=== PATIENT | female | born 1965 | race Hispanic/Latino ===

== ENCOUNTER 2021-07-27 08:33 | Emergency (ER) | payer SELFPAY ==
[~2021-07-27] VITALS: Ht 152.4 cm; Wt 100.7 kg
[~2021-07-27 08:33] MED LIST: AMOX-426 PO; METF-446 PO
[2021-07-27 09:15] LABS: BASOPHILS % (AUTO) 0.5 % (0.0-5.0); EOSINOPHILS % (AUTO) 1.6 % (0.0-8.0); HEMATOCRIT 40.3 % (36-48); LYMPHOCYTES % (AUTO) 27.6 % (21.0-51.0); MEAN CORPUSCULAR HEMOGLOBIN 30.2 pg (27.0-33.0); MEAN CORPUSCULAR HGB CONC 33.3 g/dL (32.0-36.0); MEAN CORPUSCULAR VOLUME 90.8 fL (79-99); MONOCYTES % (AUTO) 10.7 % (3.0-13.0); NEUTROPHILS % (AUTO) 59.2 % (40.0-77.0); PLATELET COUNT (AUTO) 277 K/uL (130-400); RED BLOOD CELL COUNT(AUTO) 4.44 MIL/uL (4.00-5.50); WHITE BLOOD COUNT (AUTO) 10.1 K/uL (4.8-10.8)
[2021-07-27 09:23] LABS: CREATININE 0.6 mg/dL (0.5-1.5); POTASSIUM 3.7 mmol/L (3.5-5.1)
[2021-07-27 09:28] LABS: ALBUMIN 3.3 g/dL (3.5-5.0); BILIRUBIN,TOTAL 0.4 mg/dL (0.2-1.0); TOTAL PROTEIN, SERUM 7.6 g/dL (6.0-8.3)
[2021-07-27] MEDS ORDERED: KETOROLAC 30MG VIAL (30MG/ML) ONE (10:13)
[2021-07-27 10:18] LABS: APPEARANCE,URINE Turbid (CLEAR); BILIRUBIN,URINE Negative (NEGATIVE); COLOR,URINE Yellow (YELLOW); GLUCOSE, URINE (UA) Negative (NEGATIVE); KETONES,URINE Negative (NEGATIVE); LEUKOCYTE ESTERASE ,URINE Moderate (NEGATIVE); NITRATE,URINE Negative (NEGATIVE); OCCULT BLOOD,URINE Negative (NEGATIVE); PROTEIN,URINE Negative (NEGATIVE); UROBILINOGEN,URINE 0.2 mg/dL (0.2-1.0)
[2021-07-27 10:29] LABS: BACTERIA,URINE Many /HPF (None Seen); SQUAMOUS EPITHELIAL CELL,UR 30-50 /HPF (0-2)
[2021-07-27 10:30] LABS: RBC,URINE 0-1 /HPF (0-1)
[2021-07-27] MEDS ORDERED: 0.9%NACL 1000ML 1,000 ML IV ONE (10:30)
[2021-07-27] MEDS ORDERED: KETOROLAC 15MG/ML VIAL (15MG/ML) IV ONE (10:30)
[2021-07-27] MEDS ORDERED: DIPH1TAB PO (12:14)
[2021-07-27] MEDS ORDERED: HYOS0.124 SL (12:14)
[2021-07-27 13:05] VITALS: BP 156/91
== END 2021-07-27 13:05 | disposition home or self-care (01) ==
LOC: EDH 08:33
DX: A08.4 Viral intestinal infection, unspecified (principal); E11.9 Type 2 diabetes mellitus without complications; Z79.1 Long term (current) use of non-steroidal anti-inflammatories (NSAID); Z79.84 Long term (current) use of oral hypoglycemic drugs; Z88.5 Allergy status to narcotic agent
CPT/HCPCS: 36415; 80053; 81001; 85025; 87088; 96361; 96374; 99283; J1885; J7030

== ENCOUNTER 2021-10-26 09:05 | Observation (INO) | payer OTHER ==
[~2021-10-26] VITALS: Ht 152.4 cm; Wt 100.7 kg
[~2021-10-26 09:05] MED LIST changes: +DIPH1TAB PO; +HYOS0.124 SL
[2021-10-26 09:45] LABS: APPEARANCE,URINE CLEAR (CLEAR); BILIRUBIN,URINE NEGATIVE (NEGATIVE); COLOR,URINE YELLOW (YELLOW); GLUCOSE, URINE (UA) >=1000 mg/dL (NEGATIVE); KETONES,URINE 15 mg/dL (NEGATIVE); LEUKOCYTE ESTERASE ,URINE NEGATIVE (NEGATIVE); NITRATE,URINE NEGATIVE (NEGATIVE); OCCULT BLOOD,URINE SMALL (NEGATIVE); PROTEIN,URINE NEGATIVE (NEGATIVE); UROBILINOGEN,URINE 0.2 mg/dL (0.2-1.0)
[2021-10-26 10:08] LABS: BACTERIA,URINE Rare /HPF (None Seen); RBC,URINE 0-1 /HPF (0-1); SQUAMOUS EPITHELIAL CELL,UR Rare /HPF (0-2); WBC,URINE 0-1 /HPF (0-1)
[2021-10-26 10:34] LABS: BASOPHILS % (AUTO) 0.6 % (0.0-5.0); EOSINOPHILS % (AUTO) 1.2 % (0.0-8.0); HEMATOCRIT 41.7 % (36-48); LYMPHOCYTES % (AUTO) 32.5 % (21.0-51.0); MEAN CORPUSCULAR HEMOGLOBIN 30.2 pg (27.0-33.0); MEAN CORPUSCULAR HGB CONC 33.6 g/dL (32.0-36.0); MEAN CORPUSCULAR VOLUME 89.9 fL (79-99); MONOCYTES % (AUTO) 8.7 % (3.0-13.0); NEUTROPHILS % (AUTO) 56.3 % (40.0-77.0); PLATELET COUNT (AUTO) 249 K/uL (130-400); RED BLOOD CELL COUNT(AUTO) 4.64 MIL/uL (4.00-5.50); RED CELL DISTRIBUTION WIDTH 12.2 % (11.0-15.5); WHITE BLOOD COUNT (AUTO) 10.1 K/uL (4.8-10.8)
[2021-10-26 10:44] LABS: CREATININE 0.6 mg/dL (0.5-1.5); POTASSIUM 3.6 mmol/L (3.5-5.1)
[2021-10-26 10:56] LABS: ALBUMIN 3.3 g/dL (3.5-5.0); BILIRUBIN,TOTAL 0.5 mg/dL (0.2-1.0); TOTAL PROTEIN, SERUM 7.3 g/dL (6.0-8.3)
[2021-10-26 12:04] LABS: ABG BASE EXCESS 2.8 mmol/L (-2.0-3.0); ABG HCO3 27.6 mmol/L (21.0-28.0); ABG PCO2 43 mmHg (32-45)
[2021-10-26] MEDS ORDERED: PANTOPRAZOLE 40 MG/VIAL IVP ONE (13:30)
[2021-10-26] MEDS ORDERED: ACETAMINOPHEN 500 MG TABLET PO PRN (13:30)
[2021-10-26 13:51] LABS: HEMOGLOBIN A1C 10.9 % (4.0-6.0)
[2021-10-26 14:06] LABS: AMPHET/METH SCREEN,URINE NEGATIVE (NEGATIVE); BARBITURATE SCREEN, URINE NEGATIVE (NEGATIVE); BENZODIAZEPINES SCREEN,URINE NEGATIVE (NEGATIVE); CANNABINOID SCREEN,URINE NEGATIVE (NEGATIVE); COCAINE SCREEN,URINE NEGATIVE (NEGATIVE); OPIATE SCREEN,URINE NEGATIVE (NEGATIVE); PHENCYCLIDINE SCREEN,URINE NEGATIVE (NEGATIVE)
[2021-10-26 14:07] LABS: B-TYPE NATRIURETIC PEPTIDE 21 pg/mL (0-100)
[2021-10-26 14:18] LABS: CRP QUANTITATIVE 10.5 mg/L (0.00-9.0); MAGNESIUM 1.8 mg/dL (1.80-2.40); THYROID STIMULATING HORMONE 1.68 uIU/mL (0.36-3.74)
[2021-10-26] MEDS ORDERED: PANTOPRAZOLE 40 MG/VIAL ONE (14:41)
[2021-10-26 14:43] LABS: ERYTHROCYTE SEDIMENTATION RATE 32 MM/HR (0-30)
[2021-10-26] MEDS: 0.9%NACL 1000ML 1,000 ML IV SCH (14:44)
[2021-10-26] MEDS: ACETAMINOPHEN WITH CODEINE 1 TAB TAB PO PRN ×2 (15:59→23:52)
[2021-10-26] MEDS: INSULIN HUMULIN R 100 UNIT/ML 3ML SQ SCH ×2 (16:42→21:18)
[2021-10-26 23:25] VITALS: BP 138/86
[2021-10-26] MEDS ORDERED: PIOG15TA66 PO (23:45)
[2021-10-26] MEDS ORDERED: FLUC150T48 PO (23:45)
[2021-10-26] MEDS ORDERED: HYDR-3421 PO (23:45)
[2021-10-27] VITALS (11 sets, daily range): BP systolic 103–135; BP diastolic 55–84
[2021-10-27] MEDS: 0.9%NACL 1000ML 1,000 ML IV SCH ×2 (04:54→20:51)
[2021-10-27] MEDS: INSULIN HUMULIN R 100 UNIT/ML 3ML SQ SCH ×4 (06:24→21:00)
[2021-10-27] MEDS ORDERED: REGADENOSON 0.4 MG/5 ML PF SYG IVP SCH (08:30)
[2021-10-27] MEDS: PANTOPRAZOLE 40 MG/VIAL IVP SCH (09:09)
[2021-10-27] MEDS: HEPARIN 5,000 UNIT VIAL SQ SCH ×3 (09:17→23:12)
[2021-10-27] MEDS ORDERED: ONDANSETRON 4MG INJ IVP PRN (10:00)
[2021-10-27 13:50] LABS: RAPID PLASMA REAGIN NONREACTIVE (NONREACTIVE)
[2021-10-27] MEDS ORDERED: PHARMACY COMMUNICATION MISC SCH (16:30)
[2021-10-27] MEDS ORDERED: ZOLPIDEM TARTRATE 5 MG TAB PO PRN (21:30)
[2021-10-28 03:53] VITALS: BP 102/60
[2021-10-28] MEDS: INSULIN HUMULIN R 100 UNIT/ML 3ML SQ SCH ×3 (06:36→16:25)
[2021-10-28] MEDS: HEPARIN 5,000 UNIT VIAL SQ SCH ×2 (06:56→16:24)
[2021-10-28 07:10] LABS: BASOPHILS % (AUTO) 0.2 % (0.0-5.0); EOSINOPHILS % (AUTO) 1.6 % (0.0-8.0); HEMATOCRIT 36.2 % (36-48); LYMPHOCYTES % (AUTO) 32.1 % (21.0-51.0); MEAN CORPUSCULAR HGB CONC 33.7 g/dL (32.0-36.0); MEAN CORPUSCULAR VOLUME 89.2 fL (79-99); MONOCYTES % (AUTO) 8.6 % (3.0-13.0); NEUTROPHILS % (AUTO) 57.1 % (40.0-77.0); PLATELET COUNT (AUTO) 222 K/uL (130-400); RED BLOOD CELL COUNT(AUTO) 4.06 MIL/uL (4.00-5.50); RED CELL DISTRIBUTION WIDTH 12.6 % (11.0-15.5); WHITE BLOOD COUNT (AUTO) 9.4 K/uL (4.8-10.8)
[2021-10-28 07:26] LABS: CREATININE 0.5 mg/dL (0.5-1.5); POTASSIUM 3.6 mmol/L (3.5-5.1)
[2021-10-28 08:00] VITALS: BP 133/79
[2021-10-28] MEDS: PANTOPRAZOLE 40 MG/VIAL IVP SCH (08:50)
[2021-10-28] MEDS: ACETAMINOPHEN WITH CODEINE 1 TAB TAB PO PRN (09:20)
[2021-10-28 16:00] VITALS: BP_SYST 104; BP_SYST 118; BP_SYST 119; BP_DIAS 62; BP_DIAS 72; BP_DIAS 73
[2021-10-28] MEDS ORDERED: METF-444 PO (16:55)
[2021-10-28] MEDS ORDERED: EMPA25TA PO (16:57)
[2021-10-28] MEDS ORDERED: EMPA10TA PO (16:57)
== END 2021-10-28 17:45 | disposition home or self-care (01) ==
LOC: EDH 09:05 → EDHIP 13:08 → INTOOBSV 13:08 → 4AH 23:28
PROVIDERS: ADMIT Internal Medicine; ATTEND Internal Medicine
DX: R55 Syncope and collapse (principal); Z20.822 Contact with and (suspected) exposure to COVID-19; R07.89 Other chest pain; E11.9 Type 2 diabetes mellitus without complications; E66.01 Morbid (severe) obesity due to excess calories; I21.9 Acute myocardial infarction, unspecified; I25.2 Old myocardial infarction; F41.9 Anxiety disorder, unspecified; R32 Unspecified urinary incontinence; Z90.710 Acquired absence of both cervix and uterus; Z79.899 Other long term (current) drug therapy; Z79.84 Long term (current) use of oral hypoglycemic drugs; Z98.890 Other specified postprocedural states; Z68.41 Body mass index [BMI] 40.0-44.9, adult; Y93.E1 Activity, personal bathing and showering
CPT/HCPCS: 36415 ×3; 36600; 70450; 72072; 72100; 72125; 78452; 80048; 80053; 80305; 81001; 82550 ×3; 82607; 82746; 82803; 82948 ×9; 83036; 83735; 83874 ×3; 83880; 84145; 84443; 84484 ×3; 85025 ×2; 85651; 86140; 86592; 86701; 87390; 87635; 87804 ×2; 92610; 93005; 93017; 93306; 93356; 93880; 93970; 96361 ×4; 96372 ×4; 96374; 96376 ×3; 97039 ×2; 97116; 97161; 99291; A9500 ×2; C9113 ×3; G0378 ×7; J1644 ×5; J1815 ×4; J2785

== ENCOUNTER → 2024-07-28 | Outpatient (CLI) | payer MEDICAID ==
[~2024-07-28] MED LIST changes: -AMOX-426 PO; -DIPH1TAB PO; +EMPA10TA PO; +EMPA25TA PO; +FLUC150T48 PO; +HYDR-3421 PO; -HYOS0.124 SL; +METF-444 PO; -METF-446 PO; +PIOG15TA66 PO
[2024-07-28 12:51] LABS: BASOPHILS # (AUTO) 0.05 K/uL (0.00-0.20); BASOPHILS % (AUTO) 0.4 % (0.0-5.0); EOSINOPHILS # (AUTO) 0.15 K/uL (0.00-0.70); EOSINOPHILS % (AUTO) 1.1 % (0.0-8.0); HEMATOCRIT 37.4 % (36-48); LYMPHOCYTES # (AUTO) 3.6 K/uL (1.0-4.8); LYMPHOCYTES % (AUTO) 26.5 % (21.0-51.0); MEAN CORPUSCULAR HEMOGLOBIN 31.3 pg (27.0-33.0); MEAN CORPUSCULAR HGB CONC 33.4 g/dL (32.0-36.0); MEAN CORPUSCULAR VOLUME 93.5 fL (79-99); MONOCYTES # (AUTO) 0.9 K/uL (0.1-1.0); MONOCYTES % (AUTO) 6.9 % (3.0-13.0); NEUTROPHILS # (AUTO) 8.8 K/uL (1.8-7.7); NEUTROPHILS % (AUTO) 64.4 % (40.0-77.0); PLATELET COUNT (AUTO) 280 K/uL (130-400); RED CELL DISTRIBUTION WIDTH 12.5 % (11.0-15.5); WHITE BLOOD COUNT (AUTO) 13.6 K/uL (4.8-10.8)
[2024-07-28 12:58] LABS: APPEARANCE,URINE CLEAR (CLEAR); BILIRUBIN,URINE NEGATIVE (NEGATIVE); COLOR,URINE LIGHT-YELLOW (YELLOW); GLUCOSE, URINE (UA) >=1000 mg/dL (NEGATIVE); KETONES,URINE NEGATIVE (NEGATIVE); LEUKOCYTE ESTERASE ,URINE NEGATIVE Leu/uL (NEGATIVE); NITRATE,URINE NEGATIVE (NEGATIVE); OCCULT BLOOD,URINE NEGATIVE (NEGATIVE); PROTEIN,URINE NEGATIVE (NEGATIVE); UROBILINOGEN,URINE 0.2 mg/dL (0.2-1.0)
[2024-07-28 12:59] LABS: ADD UA MICROSCOPIC YES
[2024-07-28 13:00] LABS: BACTERIA,URINE RARE /HPF (None Seen); MUCUS,URINE RARE LPF (None Seen); RBC,URINE 0-1 /HPF (0-1); SQUAMOUS EPITHELIAL CELL,UR RARE /HPF (0-2)
[2024-07-28 13:14] LABS: B-TYPE NATRIURETIC PEPTIDE 35 pg/mL (0-100)
[2024-07-28 13:35] LABS: ALBUMIN 3.5 g/dL (3.5-5.0); BILIRUBIN,TOTAL 0.4 mg/dL (0.2-1.0); CREATININE 0.6 mg/dL (0.5-1.0); MAGNESIUM 1.8 mg/dL (1.80-2.40); POTASSIUM 4.1 mmol/L (3.5-5.1); THYROID STIMULATING HORMONE 2.01 uIU/mL (0.36-3.74); TOTAL PROTEIN, SERUM 6.9 g/dL (6.0-8.3)
== END | disposition home or self-care (01) ==
LOC: LAB 11:46
PROVIDERS: ATTEND Internal Medicine Cardiovascular Disease
DX: R07.89 Other chest pain (principal); R55 Syncope and collapse
CPT/HCPCS: 36415; 80053; 81001; 82550; 83735; 83880; 84443; 84484; 85025; 87086; 87186